=== PATIENT | male | born 1945 | race Two or more races ===

== ENCOUNTER 2020-03-14 08:53 | Emergency (ER) | payer BC, MEDICARE ==
[~2020-03-14] VITALS: Ht 172.7 cm; Wt 64.5 kg
--- NOTE | 2020-03-14 09:46 | NUR ---
TO ROOM FROM LOBBY. NAD.
[2020-03-14] MEDS ORDERED: METF500T PO (09:59)
[2020-03-14] MEDS ORDERED: ATOR40TA78 PO (09:59)
[2020-03-14] MEDS ORDERED: ASPI-496 PO (09:59)
[2020-03-14] MEDS ORDERED: LEVO100T5 PO (09:59)
[2020-03-14] MEDS ORDERED: AMLO10TA4 PO (09:59)
--- NOTE | 2020-03-14 10:08 | NUR ---
PT HAS FEEDING TUBE SECONDARY TO "FOOTBALL SIZE" PSEUDOCYST ON THE PANCREAS THAT PREVENS PT FROM EATING MEALS. PT HAS LOST 15 POUNDS SINCE DIAGNOSIS WAS MADE. PT FROM [place]. PT DENIES ANY COMPLAINTS OTHER THAN NEEDING FEEDING TUBE UNBLOCKED.
[2020-03-14 10:38] LABS: BASOPHILS # (AUTO) 0.05 x10^3/uL (0-0.1); BASOPHILS % (AUTO) 1 % (0-1); EOSINOPHILS # (AUTO) 0.23 x10^3/uL (0-0.4); EOSINOPHILS % (AUTO) 2 % (1-7); LYMPHOCYTES # (AUTO) 2.56 x10^3/uL (1-3.4); LYMPHOCYTES % (AUTO) 27 % (22-44); MD NO; MEAN CORPUSCULAR HEMOGLOBIN 26.8 pg (27.5-34.5); MEAN CORPUSCULAR HGB CONC 32.2 g/dL (33.2-36.2); MEAN CORPUSCULAR VOLUME 83.1 fL (81-97); MEAN PLATELET VOLUME 8.5 fL (7.4-10.4); MONOCYTES # (AUTO) 0.93 x10^3/uL (0.2-0.8); MONOCYTES % (AUTO) 10 % (2-9); NEUTROPHILS # (AUTO) 5.74 x10^3/uL (1.8-6.8); NEUTROPHILS % (AUTO) 60 % (42-75); PLATELET COUNT 403 x10^3/uL (130-400); RED BLOOD COUNT 4.18 x10^6/uL (4.38-5.82); RED CELL DISTRIBUTION WIDTH 19.8 % (9.4-14.8)
[2020-03-14 10:50] LABS: ALANINE AMINOTRANSFERASE 31 U/L (12-78); ALBUMIN 3.5 g/dL (3.4-5.0); ANION GAP 9 mmol/L (5-15); CALCIUM 9.8 mg/dL (8.5-10.1); CHLORIDE 100 mmol/L (98-107); CREATININE 2.39 mg/dL (0.7-1.3)
[2020-03-14] MEDS ORDERED: BENZOCAINE 20% SPRAY 0.5ML ONE (10:52)
[2020-03-14 10:53] LABS: ALKALINE PHOSPHATASE 124 U/L (45-117); BILIRUBIN,TOTAL 0.9 mg/dL (0.2-1.0); TOTAL PROTEIN 7.7 g/dL (6.4-8.2)
[2020-03-14] MEDS ORDERED: LIDOCAINE GEL 2%, 5ML ONE (10:53)
--- NOTE | 2020-03-14 11:20 | NUR ---
PT IN IR.
[2020-03-14 12:17] VITALS: BP 164/86
[2020-03-14] MEDS ORDERED: OMNIPAQUE 350 MG/ML, 50 ML BOTTLE ONE (12:27)
== END 2020-03-14 12:32 | disposition home or self-care (01) ==
LOC: ED 12:24
DX: N18.3 Chronic kidney disease, stage 3 (moderate) (principal); K59.00 Constipation, unspecified; K31.5 Obstruction of duodenum; K86.3 Pseudocyst of pancreas; Z46.59 Encounter for fitting and adjustment of other gastrointestinal appliance and device
CPT/HCPCS: 36415; 74021; 74340; 80053; 83690; 85025; 99284; Q9967